=== PATIENT | female | born 1995 | race Caucasian/White ===

== ENCOUNTER → 2018-05-27 | Outpatient (CLI) | payer MEDICAID ==
--- NOTE | 2018-05-27 16:09 | Diagnostic Imaging Report ---
INDICATION: survey. TECHNIQUE: Multiple real-time grayscale images were obtained over the gravid uterus. COMPARISON: None. FINDINGS: There is a single live fetus in a variable presentation. heart rate was recorded at 167 beats per minute. Placenta is fundal. Amniotic fluid index is normal. Cervical length is 5.4 cm. survey demonstrates kidneys and bladder to be unremarkable. The brain is unremarkable. There is a four-chamber heart. There is a three-vessel cord with normal insertion. stomach and spine could not be well evaluated due to position. Biometrical measurements are as follows: Biparietal 4.86 cm, age 20 weeks 5 days. Head circumference 17.68 cm, age 20 weeks 2 days. Abdominal circumference 15.54 cm, age 20 weeks 5 days. Femur length 3.57 cm, age 21 weeks 3 days. Sonographic estimate age: 20 weeks 6 days. Sonographic estimated date of delivery: 10/08/18 Estimated Weight: 384 gm (+/- 56 gm). LMP percentile: 94%. heart rate: 167 beats per minute. number: 1 of 1. IMPRESSION: Single live IUP at 20 weeks 6 days gestational age. The estimated date of confinement sonographically is 10/08/2018. Dictated by: Dictated on workstation # [id number]
== END ==
LOC: RAD 13:57
PROVIDERS: ATTEND Obstetrics & Gynecology
DX: Z36.89 Encounter for other specified antenatal screening (principal); Z3A.20 20 weeks gestation of pregnancy
CPT/HCPCS: 76805

== ENCOUNTER → 2018-09-01 | Outpatient (CLI) | payer MEDICAID, OTHER ==
--- NOTE | 2018-09-01 15:49 | Diagnostic Imaging Report ---
INDICATION: Followup stomach and spine. TECHNIQUE: Multiple real-time grayscale images were obtained over the gravid uterus. COMPARISON: 05/27/2018. FINDINGS: There is a single live fetus in cephalic presentation. heart rate was recorded at 129 beats per minute. Placenta is anterior. Amniotic fluid volume is normal. Limited survey was performed demonstrating stomach and spine to be well visualized today. No significant abnormality is seen. Biometrical measurements are as follows: Biparietal 8.96 cm, age 36 weeks 2 days. Head circumference 31.71 cm, age 35 weeks 5 days. Abdominal circumference 31.91 cm, age 35 weeks 6 days. Femur length 6.98 cm, age 35 weeks 6 days. Sonographic estimate age: 36 weeks 0 days. Sonographic estimated date of delivery: 09/29/18. Estimated Weight: 2784 gm (+/- 407 gm). LMP percentile: 94%. heart rate: 129 beats per minute. number: 1 of 1. IMPRESSION: Single live IUP at approximately 36 weeks gestational age, showing normal interval growth. stomach and spine are unremarkable on today's study. Dictated by: Dictated on workstation # [id number]
== END ==
LOC: RAD 13:45
PROVIDERS: ATTEND Obstetrics & Gynecology
DX: O24.410 Gestational diabetes mellitus in pregnancy, diet controlled (principal); O36.63X1 Maternal care for excessive fetal growth, third trimester, fetus 1; Z3A.36 36 weeks gestation of pregnancy
CPT/HCPCS: 76816

== ENCOUNTER 2018-09-22 20:28 | Inpatient (IN) | payer MEDICAID ==
[~2018-09-22] VITALS: Ht 157.5 cm; Wt 106.8 kg
--- NOTE | 2018-09-22 20:23 | NUR ---
RUSTAM PAYAN presented to unit via ambulatory from home, accompanied by family , with c/o CONTRACTIONS. RUSTAM PAYAN weighed, gowned, voided, and to bed. EFHM and TOCO applied, VS taken. RUSTAM PAYAN oriented to bed controls, call light, TV, heat, and A/C controls.
--- NOTE | 2018-09-22 20:42 | NUR ---
Dr. Keene called per fabiola veras rn. cont to monitor x1hr and recheck cervix, call with results.
[2018-09-22 21:00] VITALS: BP 110/61
[2018-09-22] MEDS ORDERED: D5 LR IV SOLUTION 1,000 ML IV ONE ×2 (21:47→22:00)
[2018-09-22] MEDS ORDERED: PREN1TAB79 PO (21:51)
[2018-09-22] MEDS ORDERED: BUTORPHANOL INJ 2 MG/ML (STADOL) VIAL ONE (23:46)
--- NOTE | 2018-09-22 23:46 | NUR ---
Dr. Keene called per fabiola veras rn, new orders received. Will cont to monitor pt.
[2018-09-23] VITALS (50 sets, daily range): BP systolic 55–155; BP diastolic 44–110
[2018-09-23] MEDS ORDERED: D5 LR IV SOLUTION 1,000 ML IV SCH
[2018-09-23] MEDS ORDERED: BUTORPHANOL INJ 2 MG/ML (STADOL) VIAL IV ONE
[2018-09-23 00:57] LABS: BASOPHILS % (AUTO) 0 % (0-10); EOSINOPHILS # (AUTO) 0.2 10^3/uL (0.0-0.3); EOSINOPHILS % (AUTO) 2 % (0-10); HEMATOCRIT 32 % (35-52); HEMOGLOBIN 10.8 G/DL (11.5-16.0); LYMPHOCYTES # (AUTO) 2.7 X 10^3 (1.0-4.0); LYMPHOCYTES % (AUTO) 20 % (12-44); MEAN CORPUSCULAR HEMOGLOBIN 29 PG (25-34); MEAN CORPUSCULAR HGB CONC 33 G/DL (32-36); MEAN CORPUSCULAR VOLUME 85 FL (80-99); MEAN PLATELET VOLUME 10.3 FL (7.4-10.4); MONOCYTES # (AUTO) 1.1 X 10^3 (0.0-1.0); MONOCYTES % (AUTO) 8 % (0-12); NEUTROPHILS # (AUTO) 9.7 X 10^3 (1.8-7.8); NEUTROPHILS % (AUTO) 71 % (42-75); PLATELET COUNT 286 10^3/uL (130-400); RED BLOOD COUNT 3.78 10^6/uL (4.35-5.85); RED CELL DISTRIBUTION WIDTH 14.7 % (10.0-14.5); WHITE BLOOD COUNT 13.7 10^3/uL (4.3-11.0)
[2018-09-23] MEDS ORDERED: SUFENTA 0.6MCG/ML BUPIVA 0.125 100 ML ONE (06:08)
[2018-09-23] MEDS: LACTATED RINGERS 1,000 ML IV SCH ×2 (06:08→12:25)
[2018-09-23] MEDS ORDERED: BUPIVACAINE 0.25% 30 ML (SENSORCAINE) VIAL ONE (06:44)
[2018-09-23] MEDS ORDERED: fentaNYL INJECTION 100 MCG/2 ML AMP ONE (06:45)
[2018-09-23] MEDS ORDERED: FLU QUADRIvalent (5+ YOA) 2018-2019 (AFLURIA) 0.5 ML IM ONE (07:00)
[2018-09-23] MEDS ORDERED: LACTATED RINGERS 1,000 ML IV ONE (07:26)
[2018-09-23] MEDS ORDERED: NALOXONE 0.4 MG/ML 1 ML (NARCAN) VIAL IV PRN (07:30)
[2018-09-23] MEDS ORDERED: CATHETER FLUSH 10 ML SYR IV PRN (07:30)
[2018-09-23] MEDS ORDERED: EPIDURAL (SUFENTA 0.6MCG/ML BUPIVA 0.125%) 100 ML BAG EPI SCH (07:30)
[2018-09-23] MEDS ORDERED: ONDANSETRON 4 MG/2 ML (SDV) Z0FRAN IVP PRN (09:15)
[2018-09-23] MEDS: ACETAMINOPHEN 500 MG TAB (TYLENOL) PO PRN (13:07)
--- NOTE | 2018-09-23 13:22 | NUR ---
called to check on pt's status. update given. will recheck @ [id number], call MD with update
[2018-09-23] MEDS ORDERED: CATHETER FLUSH 10 ML SYR IV SCH ×2 (14:00→22:00)
--- NOTE | 2018-09-23 15:29 | NUR ---
was called. no answer on cell phone.
[2018-09-23] MEDS ORDERED: LIDOCAINE/EPI 2% 1:200,00 (XYLOCAINE) 10 ML VIAL ONE (15:31)
[2018-09-23] MEDS ORDERED: OXYTOCIN/NORMAL SALINE 500 ML IV ONE ×2 (15:31→16:21)
--- NOTE | 2018-09-23 15:38 | NUR ---
was called. no answer on cell phone. message left.
[2018-09-23] MEDS ORDERED: MINERAL OIL CONCENTRATE 99.9% 15 ML UDC ONE (15:43)
[2018-09-23] MEDS ORDERED: OXYTOCIN/NORMAL SALINE 500 ML IV SCH (16:17)
--- NOTE | 2018-09-23 16:23 | OB Labor & Delivery Record ---
Vag Delivery Note Vag Delivery Note Date of Delivery: 09/23/18 Preoperative Diagnosis: Juan Godinez is a (23 /Para 4 / 1,Gestational Age 36 6/7 weeks (edc 10/15/18) with labor, Gestational diabetes, diet controlled, Rh - Postoperative Diagnosis: Same Surgeon: CHANEL SIMON Oven Dauber: Brian Carey MS III Anesthesia: epidural Delivery Type: spontaneous vaginal delivery Findings: Viable female infant, apgars pending, weight 7#12 oz] Lacerations: 1st degree Intact placenta with 3 vessel cord. No nuchal cord, body cord or shoulder dystocia Estimated Blood Loss: 300 ml Complications: None Condition: Stable Description of Procedure: The patient is a 23 /Para 4 / 1,Gestational Age 36 6/7 weeks (edc ) Gestational diabetes, diet controlled, Rh -who presented in labor at 36 5/7 weeks. She was admitted and informed consent was obtained. Her labor course was remarkable for [] She progressed to complete dilatation and began to push. She was then set up for delivery. The 's head was delivered atraumatically in the OA position. The shoulders and remainder of the infant's body were then delivered without difficulty. Upon delivery, the head was held below the level of the perineum and the mouth and nares were bulb suctioned. The cord was doubly clamped and cut and the was handed off to the pediatric staff. An intact placenta with 3-vessel cord delivered via Mark and there was found to be minimal bleeding.~ Vigorous fundal massage was performed and the fundus was found to be firm. IV oxytocin was given. Examination of the vagina and perineum revealed a 1st degree laceration repaired in the usual fashion with 3-0 vicryl suture. Following the repair, sponge, instrument and needle counts were correct. Mom and baby were both in stable condition in the labor suite. Vitals - Labs Vital Signs - I&O Vital Signs Date Time Temp Pulse Resp B/P (MAP) Pulse Ox O2 Delivery O2 Flow Rate FiO2 09/23/18 15:00 100 18 55/53 (54) 94 Room Air 09/23/18 14:45 110 18 95/53 (67) 96 Room Air 09/23/18 14:30 108 18 95/54 (68) 97 Room Air 09/23/18 14:15 111 18 94/53 (67) 97 Room Air 09/23/18 14:00 111 18 85/45 (58) 96 Room Air 09/23/18 13:45 121 18 111/57 (75) 97 Room Air 09/23/18 13:30 113 18 107/59 (75) 98 Room Air 09/23/18 13:15 113 18 105/59 (74) 98 Room Air 09/23/18 13:00 113 18 83/49 (60) 98 Room Air 09/23/18 12:45 112 18 81/53 (62) 98 Room Air 09/23/18 12:30 98.6 116 18 82/44 (57) 98 Room Air 09/23/18 12:15 110 18 102/56 (71) 96 Room Air 09/23/18 12:00 110 18 98/54 (69) 98 Room Air 09/23/18 11:45 106 18 98/54 (69) 96 Room Air 09/23/18 11:30 104 18 104/60 (75) 96 Room Air 09/23/18 11:15 105 18 96 Room Air 09/23/18 11:00 105 18 106/63 (77) 96 Room Air 09/23/18 10:45 98.3 109 18 103/62 (76) 98 Room Air 09/23/18 10:30 105 18 103/57 (72) 99 Room Air 09/23/18 10:15 102 18 105/62 (76) 98 Room Air 09/23/18 10:00 109 18 110/68 (82) 99 Room Air 09/23/18 09:45 108 18 99/61 (74) 97 Room Air 09/23/18 09:30 103 18 98/60 (73) 97 Room Air 09/23/18 09:15 106 18 97/60 (72) 99 Room Air 09/23/18 09:00 102 18 95/53 (67) 98 Room Air 09/23/18 08:45 108 18 95/58 (70) 97 Room Air 09/23/18 08:30 108 18 87/50 (62) 97 Room Air 09/23/18 08:15 103 18 106/63 (77) 99 Room Air 09/23/18 08:00 115 18 98 Room Air 09/23/18 07:45 118 18 155/110 (125) 99 Room Air 09/23/18 07:25 98.7 118 18 114/62 (79) 98 Room Air 09/23/18 07:22 122 18 117/84 (95) 98 Room Air 09/23/18 07:19 108 18 117/73 (88) 97 Room Air 09/23/18 07:16 111 18 118/76 (90) 98 Room Air 09/23/18 07:13 112 18 126/78 (94) 98 Room Air 09/23/18 07:10 112 18 134/78 (96) 98 Room Air 09/23/18 07:07 123 18 127/77 (94) 98 Room Air 09/23/18 07:00 98.1 09/23/18 03:00 98.0 09/22/18 21:00 98.6 115 18 110/61 (77) Room Air Labs Laboratory Tests 09/23/18 00:35: White Blood Count 13.7H, Red Blood Count 3.78L, Hemoglobin 10.8L, Hematocrit 32L , Mean Corpuscular Volume 85, Mean Corpuscular Hemoglobin 29, Mean Corpuscular Hemoglobin Concent 33, Red Cell Distribution Width 14.7H, Platelet Count 286, Mean Platelet Volume 10.3, Neutrophils (%) (Auto) 71, Lymphocytes (%) (Auto) 20 , Monocytes (%) (Auto) 8, Eosinophils (%) (Auto) 2, Basophils (%) (Auto) 0, Neutrophils # (Auto) 9.7H, Lymphocytes # (Auto) 2.7, Monocytes # (Auto) 1.1H, Eosinophils # (Auto) 0.2, Basophils # (Auto) 0.0 09/23/18 06:06: Glucometer 109 CHANEL SIMON DO Sep 23, 2018 16:23
[2018-09-23] MEDS ORDERED: TETANUS,DIPTH,PERTUSS P/F (BOOSTRIX) 0.5 ML VIAL IM ONE (16:30)
[2018-09-23] MEDS ORDERED: ACETAMINOPHEN 500 MG TAB (TYLENOL) PO PRN (16:30)
[2018-09-23] MEDS ORDERED: MEASLES,MUMPS,RUBELLA 1 EA INJ SQ ONE (16:30)
[2018-09-23] MEDS ORDERED: BENZOCAINE/MENTHOL (DERMOPLAST) 56 ML CAN TP PRN (16:30)
[2018-09-23] MEDS ORDERED: WITCH HAZEL(TUCKS) 40 EA JAR TOP PRN (16:30)
--- NOTE | 2018-09-23 17:45 | NUR ---
FFu/1. lt renny noted. no clots expressed. rodolfo-care offered. v-pad and panties in place. pt transported to nursery via w/c to see . Addendum: 09/23/18 at 1954 by SEBASTIÁN DONALDSON RN correction to time of note. mother into nursery @ 1842
--- NOTE | 2018-09-23 19:10 | NUR ---
report given to Hamzah RN
[2018-09-23] MEDS: IBUPROFEN 600 MG (MOTRIN) TAB PO SCH (19:18)
[2018-09-23] MEDS: DOCUSATE SODIUM 100 MG (COLACE) CAP PO SCH (21:33)
[2018-09-24] MEDS: IBUPROFEN 600 MG (MOTRIN) TAB PO SCH ×4 (00:47→21:58)
[2018-09-24 04:17] LABS: BASOPHILS % (AUTO) 0 % (0-10); EOSINOPHILS # (AUTO) 0.2 10^3/uL (0.0-0.3); EOSINOPHILS % (AUTO) 1 % (0-10); HEMATOCRIT 31 % (35-52); HEMOGLOBIN 10.2 G/DL (11.5-16.0); LYMPHOCYTES # (AUTO) 3.2 X 10^3 (1.0-4.0); LYMPHOCYTES % (AUTO) 22 % (12-44); MEAN CORPUSCULAR HEMOGLOBIN 28 PG (25-34); MEAN CORPUSCULAR HGB CONC 33 G/DL (32-36); MEAN CORPUSCULAR VOLUME 87 FL (80-99); MEAN PLATELET VOLUME 10.5 FL (7.4-10.4); MONOCYTES # (AUTO) 0.8 X 10^3 (0.0-1.0); MONOCYTES % (AUTO) 6 % (0-12); NEUTROPHILS # (AUTO) 10.4 X 10^3 (1.8-7.8); NEUTROPHILS % (AUTO) 71 % (42-75); PLATELET COUNT 233 10^3/uL (130-400); RED BLOOD COUNT 3.59 10^6/uL (4.35-5.85); RED CELL DISTRIBUTION WIDTH 14.5 % (10.0-14.5); WHITE BLOOD COUNT 14.7 10^3/uL (4.3-11.0)
[2018-09-24 04:57] VITALS: BP 86/58
--- NOTE | 2018-09-24 06:57 | Anesthesia-Regional Post-Op ---
Regional Patient Condition Mental Status: Alert, Oriented x3 Circulation: Same as Pre-Op Headache: Absent Sensation: Full Recovery Motor Block: Absent Post Op Complications Complications None Follow Up Care/Instructions Patient Instructions None needed. Anesthesia/Patient Condition Patient is doing well, no complaints, stable vital signs, no apparent adverse anesthesia problems. No complications reported per nursing. MINOO BLAS CRNA Sep 24, 2018 06:57
--- NOTE | 2018-09-24 09:30 | NUR ---
AM assessment delayed due to mom in nursery visiting with baby.
[2018-09-24 10:37] VITALS: BP 98/70
[2018-09-24] MEDS: DOCUSATE SODIUM 100 MG (COLACE) CAP PO SCH ×2 (10:43→21:59)
[2018-09-24] MEDS: PRENATAL VITAMIN 1 EA TAB PO SCH (10:43)
--- NOTE | 2018-09-24 11:01 | NUR ---
Rhogam given in rt hip for RH + . Instructions given to obtain injection within 72 hrs if or miscarriage. ID card given. Pt verbalized understanding.
[2018-09-24 12:40] VITALS: BP 100/65
--- NOTE | 2018-09-24 13:00 | Postpartum Progress Note ---
Note Note Day # 1 s/p , gestational diabetes, 35 6/7 qweeks Subjective: Patient is without complaints. Ambulating, voiding. Tolerating a regular diet without nausea or vomiting. Normal lochia. Pain is well controlled with oral pain medications. Objective: Laboratory Tests Test 09/24/18 04:05 09/24/18 06:42 Range/Units White Blood Count 14.7 H 4.3-11.0 10^3/uL Red Blood Count 3.59 L 4.35-5.85 10^6/uL Hemoglobin 10.2 L 11.5-16.0 G/DL Hematocrit 31 L 35-52 % Mean Corpuscular Volume 87 80-99 FL Mean Corpuscular Hemoglobin 28 25-34 PG Mean Corpuscular Hemoglobin Concent 33 32-36 G/DL Red Cell Distribution Width 14.5 10.0-14.5 % Platelet Count 233 130-400 10^3/uL Mean Platelet Volume 10.5 H 7.4-10.4 FL Neutrophils (%) (Auto) 71 42-75 % Lymphocytes (%) (Auto) 22 12-44 % Monocytes (%) (Auto) 6 0-12 % Eosinophils (%) (Auto) 1 0-10 % Basophils (%) (Auto) 0 0-10 % Neutrophils # (Auto) 10.4 H 1.8-7.8 X 10^3 Lymphocytes # (Auto) 3.2 1.0-4.0 X 10^3 Monocytes # (Auto) 0.8 0.0-1.0 X 10^3 Eosinophils # (Auto) 0.2 0.0-0.3 10^3/uL Basophils # (Auto) 0.0 0.0-0.1 10^3/uL Glucometer 112 H 70-110 MG/DL 09/24/18 09/24/18 09/24/18 04:57 10:37 12:40 Temp 99.3 97.6 97.7 Pulse 75 86 75 Resp 18 20 20 B/P (MAP) 86/58 (67) 98/70 (79) 100/65 (77) Pulse Ox 97 O2 Delivery Room Air Room Air Room Air Physical Exam: General - Alert and oriented, no apparent distress Abdomen - Soft, appropriately tender to palpation, non-distended, fundus firm at umbilicus Extremities - no edema, negative Magdalena's bilaterally Assessment: 1. post- day # 1, status post vaginal delivery. Recovering well, hemodynamically stable Plan: Routine care. Encourage breast feeding. Encourage ambulation. Ferrous sulfate supplementation. Plan for discharge tomorrow Vitals - Labs Vital Signs - I&O Vital Signs Date Time Temp Pulse Resp B/P (MAP) Pulse Ox O2 Delivery O2 Flow Rate FiO2 09/24/18 12:40 97.7 75 20 100/65 (77) 97 Room Air 09/24/18 10:37 97.6 86 20 98/70 (79) Room Air 09/24/18 04:57 99.3 75 18 86/58 (67) Room Air 09/23/18 23:44 98.4 84 18 111/65 (80) Room Air 09/23/18 21:33 97.7 106 18 101/65 (77) Room Air 09/23/18 18:25 98.1 111 18 107/68 (81) Room Air 09/23/18 18:10 98 18 106/62 (77) Room Air 09/23/18 17:55 111 18 112/75 (87) Room Air 09/23/18 17:40 91 18 110/60 (77) Room Air 09/23/18 17:25 106 18 109/60 (76) Room Air 09/23/18 17:10 98 18 111/66 (81) Room Air 09/23/18 16:55 96 18 109/64 (79) Room Air 09/23/18 16:45 99 18 112/69 (83) Room Air 09/23/18 16:30 100 18 110/59 (76) Room Air 09/23/18 15:55 99.4 107 18 110/59 (76) Room Air 09/23/18 15:45 109 18 129/61 (83) Room Air 09/23/18 15:30 107 18 102/58 (73) 96 Room Air 09/23/18 15:15 107 18 102/58 (73) 96 Room Air 09/23/18 15:00 100 18 55/53 (54) 94 Room Air 09/23/18 14:45 110 18 95/53 (67) 96 Room Air 09/23/18 14:30 108 18 95/54 (68) 97 Room Air 09/23/18 14:15 111 18 94/53 (67) 97 Room Air 09/23/18 14:00 111 18 85/45 (58) 96 Room Air 09/23/18 13:45 121 18 111/57 (75) 97 Room Air 09/23/18 13:30 113 18 107/59 (75) 98 Room Air 09/23/18 13:15 113 18 105/59 (74) 98 Room Air 09/23/18 13:00 113 18 83/49 (60) 98 Room Air Labs Laboratory Tests 09/24/18 04:05: White Blood Count 14.7H, Red Blood Count 3.59L, Hemoglobin 10.2L, Hematocrit 31L , Mean Corpuscular Volume 87, Mean Corpuscular Hemoglobin 28, Mean Corpuscular Hemoglobin Concent 33, Red Cell Distribution Width 14.5, Platelet Count 233, Mean Platelet Volume 10.5H, Neutrophils (%) (Auto) 71, Lymphocytes (%) (Auto) 22 , Monocytes (%) (Auto) 6, Eosinophils (%) (Auto) 1, Basophils (%) (Auto) 0, Neutrophils # (Auto) 10.4H, Lymphocytes # (Auto) 3.2, Monocytes # (Auto) 0.8, Eosinophils # (Auto) 0.2, Basophils # (Auto) 0.0 09/24/18 06:42: Glucometer 112H CHANEL SIMON DO Sep 24, 2018 13:00
[2018-09-24] MEDS ORDERED: IBUP-844 PO (13:01)
[2018-09-24] MEDS ORDERED: ACET-77 PO (13:01)
--- NOTE | 2018-09-24 13:03 | Discharge Inst-Women's Service ---
Discharge Inst-Women's Serv Depart Medication/Instructions New, Converted or Re-Newed RX: RX on Chart Final Diagnosis gestational diabetes rupture of membranes Rh - Consults/Follow Up Additional Follow Up: Yes (6 week for 2 hour glucola and follow up with dr. simon) Activity Activity: Activity as Tolerated Driving Instructions: You May Drive NO SMOKING: NO SMOKING Nothing Inside Vagina: No Douching, No [place], No Tampons Diet Discharge Diet: No Restrictions Symptoms to Report to : Bleeding Excessive, Pain Increased, Fever Over 101 Degrees F, Vaginal Bleeding Increase, Cramps in Feet or Legs, Vaginal Discharge Foul For Any Problems or Questions: Contact Your Physician CHANEL SIMON DO Sep 24, 2018 13:03
--- NOTE | 2018-09-24 15:21 | NUR ---
Ibuprofen called to [facility] in [place].
--- NOTE | 2018-09-24 16:15 | NUR ---
Pt given home instructions- verbal and written. Discharged signed by mom. Planned discharge for am.
[2018-09-24 18:00] VITALS: BP 108/58
--- NOTE | 2018-09-24 19:10 | NUR ---
Mom tearful this afternoon and evening. Baby in NICU. She holds and cuddles baby. S.O. and daughter at bedside.
--- NOTE | 2018-09-24 21:00 | NUR ---
went to complete assessment. pt in nsy. told patient to notify rn when back in room.
[2018-09-25] MEDS: ACETAMINOPHEN 500 MG TAB (TYLENOL) PO PRN
[2018-09-25 00:05] VITALS: BP 109/75
[2018-09-25] MEDS: IBUPROFEN 600 MG (MOTRIN) TAB PO SCH ×2 (04:20→09:08)
[2018-09-25 06:09] VITALS: BP 112/78
[2018-09-25] MEDS: DOCUSATE SODIUM 100 MG (COLACE) CAP PO SCH (09:08)
[2018-09-25] MEDS: PRENATAL VITAMIN 1 EA TAB PO SCH (09:08)
--- NOTE | 2018-09-25 09:30 | NUR ---
RUSTAM PAYAN demonstrates understanding of discharge instructions and accurately returns instructions upon questioning. Copy of Post-Discharge Instructions and Medication Discharge Instructions given to patient. RUSTAM PAYAN is able to manage continuing needs after discharge. Patients belongings returned to patient. Skin dry and intact; no breakdown noted. Patient discharged from [facility] [place] on 09-25-18 at 0930. RUSTAM PAYAN remains in room 309 to [facility] r[facility]t [facility] in nursery.
== END 2018-09-25 09:30 | disposition home or self-care (01) | DRG 807 ==
LOC: LDRP 20:28 → WSo 20:28 → LDRP 09-23 06:01 → WS 09-24 11:50 → LDRP 09-24 11:50
PROVIDERS: ADMIT Obstetrics & Gynecology; ATTEND Obstetrics & Gynecology
PROC: 10E0XZZ Delivery of Products of Conception, External Approach (ICD-10-PCS; principal; 2018-09-23)
PROC: 0HQ9XZZ Repair Perineum Skin, External Approach (ICD-10-PCS; 2018-09-23)
DX: O60.14X0 Preterm labor third trimester with preterm delivery third trimester, not applicable or unspecified (principal); O24.420 Gestational diabetes mellitus in childbirth, diet controlled; O70.0 First degree perineal laceration during delivery; O26.893 Other specified pregnancy related conditions, third trimester; Z67.11 Type A blood, Rh negative; Z3A.36 36 weeks gestation of pregnancy; Z37.0 Single live birth; Z87.891 Personal history of nicotine dependence
CPT/HCPCS: 36415; 82962; 83033; 85025; 86850; 86900; 86901; 99212

== ENCOUNTER → 2018-09-22 | Outpatient (CLI) | payer MEDICAID ==
[~2018-09-22] MED LIST: ACET-77 PO; IBUP-844 PO; PREN1TAB79 PO
--- NOTE | 2018-09-22 14:21 | Diagnostic Imaging Report ---
INDICATION: Large for gestational age. TECHNIQUE: Multiple real-time grayscale images were obtained over the gravid uterus. COMPARISON: 09/01/2018. FINDINGS: There is a single live fetus in a cephalic presentation. heart rate was recorded at 135 beats per minute. Amniotic fluid index is 19.5 cm. Biophysical profile was performed with score of 4/8. Deduction was given for lack of movements and posture and tone. Biometrical measurements are as follows: Biparietal 9.49 cm, age 38 weeks 5 days. Head circumference 34.10 cm, age 39 weeks 2 days. Abdominal circumference 34.28 cm, age 38 weeks 2 days. Femur length 7.18 cm, age 36 weeks 6 days. Sonographic estimate age: 38 weeks 2 days. Sonographic estimated date of delivery: 10/04/2018. Estimated Weight: 3381 gm (+/- 494 gm). LMP percentile: 50%. heart rate: 135 beats per minute. number: 1 of 1. IMPRESSION: Single live IUP approximately 38 weeks gestational age. Biophysical profile score is 4/8, as described above. Results were called to Dr. Romeo by the technologist at the time of the exam. Dictated by: Dictated on workstation # [id number]
== END ==
LOC: RAD 12:31
PROVIDERS: ATTEND Obstetrics & Gynecology
DX: O36.63X0 Maternal care for excessive fetal growth, third trimester, not applicable or unspecified (principal); O24.410 Gestational diabetes mellitus in pregnancy, diet controlled; Z3A.38 38 weeks gestation of pregnancy
CPT/HCPCS: 76805; 76819

== ENCOUNTER → 2020-02-13 | Outpatient (CLI) | payer MEDICAID ==
[~2020-02-13] MED LIST changes: -ACET-77 PO; +ACET-78 PO
== END ==
LOC: LAB FS 17:43
PROVIDERS: ATTEND Family Medicine
DX: Z34.90 Encounter for supervision of normal pregnancy, unspecified, unspecified trimester (principal); Z3A.00 Weeks of gestation of pregnancy not specified
CPT/HCPCS: 36415; 87491; 87591

== ENCOUNTER → 2020-03-12 | Outpatient (CLI) | payer MEDICAID | LOC: LAB FS 16:25 | PROVIDERS: ATTEND Family Medicine | DX: Z34.82 Encounter for supervision of other normal pregnancy, second trimester (principal) | CPT/HCPCS: 36415; 82105; 84702; 86336 ==

== ENCOUNTER → 2020-06-04 | Outpatient (CLI) | payer MEDICAID ==
[2020-06-04 15:57] LABS: HEMATOCRIT 34 % (35-52); HEMOGLOBIN 11.2 G/DL (11.5-16.0); MEAN CORPUSCULAR HEMOGLOBIN 28 PG (25-34); MEAN CORPUSCULAR HGB CONC 33 G/DL (32-36); MEAN CORPUSCULAR VOLUME 84 FL (80-99); MEAN PLATELET VOLUME 9.7 FL (7.4-10.4); PLATELET COUNT 323 10^3/uL (130-400); WHITE BLOOD COUNT 12.7 10^3/uL (4.3-11.0)
[2020-06-04 15:58] LABS: BASOPHILS % (AUTO) 0 % (0-10); EOSINOPHILS % (AUTO) 3 % (0-10); LYMPHOCYTES % (AUTO) 19 % (12-44); MONOCYTES % (AUTO) 3 % (0-12); NEUTROPHILS % (AUTO) 75 % (42-75)
[2020-06-04 15:59] LABS: EOSINOPHILS # (AUTO) 0.3 10^3/uL (0.0-0.3); LYMPHOCYTES # (AUTO) 2.4 X 10^3 (1.0-4.0); MONOCYTES # (AUTO) 0.4 X 10^3 (0.0-1.0); NEUTROPHILS # (AUTO) 9.5 X 10^3 (1.8-7.8)
== END ==
LOC: LAB FS 15:12
PROVIDERS: ATTEND Family Medicine
DX: Z34.83 Encounter for supervision of other normal pregnancy, third trimester (principal)
CPT/HCPCS: 36415; 82950; 85025; 86592; 86850

== ENCOUNTER → 2020-06-08 | Outpatient (CLI) | payer MEDICAID | LOC: LAB FS 07:12 | PROVIDERS: ATTEND Family Medicine | DX: R73.09 Other abnormal glucose (principal) | CPT/HCPCS: 36415; 82951; 82952; 82962 ==

== ENCOUNTER 2020-08-08 01:50 | Inpatient (IN) | payer MEDICAID ==
[2020-08-08] VITALS (11 sets, daily range): BP systolic 92–145; BP diastolic 50–86
[~2020-08-08] VITALS: Ht 157.5 cm; Wt 113.0 kg
--- NOTE | 2020-08-08 01:50 | NUR ---
RUSTAM PAYAN presented to unit via WC from ED, accompanied by staff and s.o, with c/o CONTRACTIONS,FLUID LEAKAGE. RUSTAM PAYAN weighed, gowned, voided, and to bed. EFHM and TOCO applied, VS taken. RUSTAM PAYAN oriented to bed controls, call light, TV, heat, and A/C controls.
[2020-08-08] MEDS ORDERED: NS IV 1000 ML 1,000 ML ONE (02:04)
--- NOTE | 2020-08-08 02:04 | NUR ---
Dr. Romeo called regarding pt's status, 6-7cm, intact, crying/sobbing in pain, requesting epidural, no pn records available, dr. kelly out due to illness. orders received for epidural placement and admit.
[2020-08-08] MEDS ORDERED: D5 LR IV SOLUTION 1,000 ML IV SCH (02:10)
[2020-08-08] MEDS ORDERED: MINERAL OIL CONCENTRATE 99.9% 15 ML UDC TOP PRN (02:15)
[2020-08-08] MEDS ORDERED: OXYTOCIN PRE-MIX DRIP 1,000 ML IV ONE (02:23)
[2020-08-08] MEDS ORDERED: LIDOCAINE/EPI 2% 1:200,00 (XYLOCAINE) 10 ML VIAL ONE (02:23)
--- NOTE | 2020-08-08 02:25 | History & Physical-OB ---
OB - Chief Complaint & HPI Date/Time Date of Admission: Date of Admission: Aug 08, 2020 at 02:10 Date seen by a Provider: Aug 08, 2020 Time Seen by a Provider: 02:30 Chief Complaint/History OB-Reason for Admission/Chief: Onset of Labor (PAtient reports contractions began last evening) Hx : 3 Hx Para: 2 Expected Date of Delivery: Aug 25, 2020 Gestational Age in Weeks: 37 Gestational Age in Days: 4 Other reason for admission: Patient of Dr. Barr. she is out due to illness, new diagnosis and unknown to staff. I was called with report of labor at 0210 that she was 6-7 cm, high with intact membranes, but soni regularly, and then notified at 0237 as I was dressing that labs were done and anesthesia on the way for epidural but she was 8 cm and feeling pushy. I arrived at the hospital, but delayed with rain and train and covid protocol (PPE). As I walked into the room the baby delivered en call by the nurses. Patient reports bleeding began last night around 11 and then contractions, but they weren't regular so she wasn't sure she was in labor. complicated by GDM A2 treated with metformin. she states she took metformin last night prior to dinner. Blood sugar on arrival was 103 and was 88 last night, but "I ate a pop tart while I was trying to figure out if I was in labor". No covid symptoms. See delivery note Admission Nurse Assessment Rev: Yes History of Labs GBS - A-/ antibody negative syphilis neg PN labs unavailable I checked [facility] and [employer] and did not find previous labs except CBC, progenity, quad screen results (all wnl), syphilis and glucose testing. GBS - in [place] Previous Rub I HIV - HBsAg- Hep C neg (all drawn 01/2018) Allergies and Home Medications Allergies Coded Allergies: No Known Drug Allergies (Unverified , 08/08/20) Patient Home Medication List Home Medication List Reviewed: Yes OB - History Hx of Present Ultrasounds: Normal mid trimester US Obstetrical Complications: Gestational Diabetes (controlled with metformin. Normal testing) Information Induced Hypertension: No Maternal Gestational Diabetes: Yes Hemorrhage: No Obstetrical History Hx : 3 Hx Para: 2 Hx # Term Pregnancies: 1 Hx # Pregnancies: 1 Number of Living Children: 2 Hx Termination: No Hx Total # of Abortions ([place]: 2 Hx Multiple Gestation: No Hx Ectopic : No Hx Stillbirth: No Hx Complication: No Hx Induced Hypertens: No Hx Maternal Gestational Diabet: Yes Hx Hemorrhage: No Delivery History Hx Dystocia: No Hx Forceps Assisted Delivery: No Hx Vacuum Extraction Assisted: No Hx Placenta Abnormality: No Hx Distress: No Hx Large For Gestational Age I: Yes Hx Small for Gestational Age I: No Hx Section: No Hx Vaginal Delivery Post C-Sec: No Hx Blood Disorders: No Adverse Rxn to Tranfusion: No Patient Past Medical History NC Social History/Family History HIV/AIDS: No Recent Infectious Disease Expo: No Sexually Transmitted Disease: No Alcohol Use: Denies Use Recreational Drug Use: No Smoking Cessation: Former smoker (quit 2015) Immunizations Hepatitis A: No Hepatitis B: No Tetanus Booster (TDap): Less than 5yrs Rubella: unknown RPR/VDRL: Negative GBS Status: Negative HBsAG: Unknown OB - Admission Exam Physical Exam Vitals: See RN chart Heart: Rhythm Normal Lungs: Clear Abdomen: Gravid Extremities: Edema (1+) Reflexes: Normal Cervical Dilatation: other (see note) Effacement: Other Station: Other Membranes: Intact Amniotic Fluid: Other (large amount of blood clots with delivery, but fluid clear) Heart Rate: 140's Accelerations: Accelerations Present Decelerations: No Decelerations Short Term Variability: Present Halfway Variability: Average (6-25) Contractions on Admission: < 5 Minutes Apart Intensity: Moderate Labs Laboratory Tests Test 08/08/20 02:15 08/08/20 03:20 Range/Units White Blood Count 12.8 H 4.3-11.0 10^3/uL Red Blood Count 4.32 3.80-5.11 10^6/uL Hemoglobin 11.8 11.5-16.0 g/dL Hematocrit 36 35-52 % Mean Corpuscular Volume 84 80-99 fL Mean Corpuscular Hemoglobin 27 25-34 pg Mean Corpuscular Hemoglobin Concent 33 32-36 g/dL Red Cell Distribution Width 14.2 10.0-14.5 % Platelet Count 286 130-400 10^3/uL Mean Platelet Volume 10.4 9.0-12.2 fL Immature Granulocyte % (Auto) 1 % Neutrophils (%) (Auto) 69 42-75 % Lymphocytes (%) (Auto) 22 12-44 % Monocytes (%) (Auto) 7 0-12 % Eosinophils (%) (Auto) 2 0-10 % Basophils (%) (Auto) 0 0-10 % Neutrophils # (Auto) 8.8 H 1.8-7.8 10^3/uL Lymphocytes # (Auto) 2.8 1.0-4.0 10^3/uL Monocytes # (Auto) 0.9 0.0-1.0 10^3/uL Eosinophils # (Auto) 0.2 0.0-0.3 10^3/uL Basophils # (Auto) 0.0 0.0-0.1 10^3/uL Immature Granulocyte # (Auto) 0.1 0.0-0.1 10^3/uL Glucose Level 104 70-105 MG/DL Laboratory Tests Test 08/08/20 02:15 Range/Units OB - Assessment/Plan/Diagnosis Assessment Assessment: active labor Admission Dx 1. at 37 47 weeks in active labor 2. GDM A2 Plan - precipitous delivery en call PN labs seem to be unavailable Will redraw Covid test to be done due to protocol Admission Status: Inpatient Order (span 2 midnights) (labor) Reason for Inpatient Admission: labor Plan Plan: Expectant Management CHANEL SIMON DO Aug 08, 2020 02:25
[2020-08-08 02:29] LABS: BASOPHILS % (AUTO) 0 % (0-10); EOSINOPHILS # (AUTO) 0.2 10^3/uL (0.0-0.3); EOSINOPHILS % (AUTO) 2 % (0-10); HEMATOCRIT 36 % (35-52); HEMOGLOBIN 11.8 g/dL (11.5-16.0); LYMPHOCYTES # (AUTO) 2.8 10^3/uL (1.0-4.0); LYMPHOCYTES % (AUTO) 22 % (12-44); MEAN CORPUSCULAR HEMOGLOBIN 27 pg (25-34); MEAN CORPUSCULAR HGB CONC 33 g/dL (32-36); MEAN CORPUSCULAR VOLUME 84 fL (80-99); MEAN PLATELET VOLUME 10.4 fL (9.0-12.2); MONOCYTES # (AUTO) 0.9 10^3/uL (0.0-1.0); MONOCYTES % (AUTO) 7 % (0-12); NEUTROPHILS # (AUTO) 8.8 10^3/uL (1.8-7.8); NEUTROPHILS % (AUTO) 69 % (42-75); PLATELET COUNT 286 10^3/uL (130-400); WHITE BLOOD COUNT 12.8 10^3/uL (4.3-11.0)
[2020-08-08] MEDS ORDERED: LACTATED RINGERS 1,000 ML IV SCH (02:30)
[2020-08-08] MEDS ORDERED: BUTORPHANOL INJ 2 MG/ML (STADOL) VIAL IV ONE (02:30)
--- NOTE | 2020-08-08 02:33 | NUR ---
Tete Child [employer] called for epidural placement.
[2020-08-08] MEDS ORDERED: fentaNYL 2 mcg/ml BUPIVA 0.125 0 ML ONE (02:36)
--- NOTE | 2020-08-08 02:36 | NUR ---
Dr. robert route for delivery. Addendum: 08/08/20 at 0459 by EAN SEPULVEDA RN this rn notified of pt being 8cm, water in tact, thrashing uncontrollably, - see above
--- NOTE | 2020-08-08 03:00 | NUR ---
See labor flowsheet for further details regarding delivery, physician arrival and care. 0300 - pitocin infusion at 999ml/hr initiated 0330 - pitocin bag one complete 0330 - pitocin infusion at 999ml/hr initiated scan times not recorded at accurate times
[2020-08-08] MEDS ORDERED: TETANUS,DIPTH,PERTUSS P/F (BOOSTRIX) 0.5 ML VIAL IM ONE (03:30)
[2020-08-08] MEDS ORDERED: MEASLES,MUMPS,RUBELLA 1 EA INJ SQ ONE (03:30)
[2020-08-08] MEDS ORDERED: WITCH HAZEL(TUCKS) 40 EA JAR TOP PRN (03:30)
[2020-08-08] MEDS ORDERED: BENZOCAINE/MENTHOL (DERMOPLAST) 60 ML CAN TP PRN (03:30)
[2020-08-08] MEDS ORDERED: KETOROLAC 30 MG/ML VIAL IVP ONE (03:30)
--- NOTE | 2020-08-08 03:57 | OB Labor & Delivery Record ---
Vag Delivery Note Vag Delivery Note Date of Delivery: 08/08/20 Preoperative Diagnosis: Juan Godinez is a 25 /Para 5 / 2,Gestational Age 37 4/7 weeks, active labor, GDM A2 Postoperative Diagnosis: Same Surgeon: CHANEL SIMON Anesthesia: none Delivery Type: precipitous delivery en call, suspect abruption as well Findings: Viable male , apgars 7/8, weight pending Lacerations: 1st degree Intact placenta with 3 vessel cord. Large clots noticed. With delivery of baby, placenta delivered as well. suspect abruption. No nuchal cord, body cord or shoulder dystocia Estimated Blood Loss: 200 ml (but could not assess completely as she delivered in the bed and some had been removed already. Complications: None Condition: Stable Description of Procedure: The patient is a 25 /Para 5 / 2,Gestational Age 37 4/7 weeks, active labor, GDM A2. She was admitted and informed consent was obtained. Her labor cou rse was remarkable for precipitous delivery. she is a patient of Dr. Barr. Dr. Barr was notified of delivery by RN, and was informed that she is out due to illness. Then I was informed of arrival at 0210. She was noted to be soni painfully every 2-3 minutes and requesting an epidural. At 0237 I was notified that she was progressing quickly and PANTRY COOK was on the way. At 0255 I was notified that she was feeling pushy but still intact. I was en route to the hospital but delayed by train, lisette and Covid protocol. At 0256 I arrived at the hospital. Per RN, she progressed to complete dilatation and began to push involuntarily. I arrived on the floor as she was delivering ([id number]). Rn Delivered en call and ROM at delivery. The 's head was delivered atraumatically in the OA position. The shoulders and remainder of the infant's body were then delivered without difficulty. Upon delivery, the head was held below the level of the perineum and the mouth and nares were bulb suctioned. The cord was doubly clamped and cut and the was handed off to the pediatric staff. An intact placenta with 3-vessel cord delivered via Mark and there was found to be minimal bleeding.~ Vigorous fundal massage was performed and the fundus was found to be firm. IV oxytocin was given. Examination of the vagina and perineum revealed a 1st laceration . she adamantly declined local anesthetic or suture. The wound was hemostatic, so I did not place sutures. Following the delivery, sponge, instrument and needle counts were correct. Mom and baby were both in stable condition in the labor suite. Vitals - Labs Labs Laboratory Tests 08/08/20 02:15: White Blood Count 12.8H, Red Blood Count 4.32, Hemoglobin 11.8, Hematocrit 36, Mean Corpuscular Volume 84, Mean Corpuscular Hemoglobin 27, Mean Corpuscular Hemoglobin Concent 33, Red Cell Distribution Width 14.2, Platelet Count 286, Mean Platelet Volume 10.4, Immature Granulocyte % (Auto) 1, Neutrophils (%) (Auto) 69, Lymphocytes (%) (Auto) 22, Monocytes (%) (Auto) 7, Eosinophils (%) (Auto) 2, Basophils (%) (Auto) 0, Neutrophils # (Auto) 8.8H, Lymphocytes # (Auto) 2.8, Monocytes # (Auto) 0.9, Eosinophils # (Auto) 0.2, Basophils # (Auto) 0.0, Immature Granulocyte # (Auto) 0.1, Glucose Level 104 08/08/20 03:20: CHANEL SIMON DO Aug 08, 2020 03:57
[2020-08-08] MEDS ORDERED: FERR325T18 PO (04:05)
[2020-08-08] MEDS ORDERED: ACET-93 PO (04:05)
[2020-08-08] MEDS ORDERED: IBUP-844 PO (04:05)
--- NOTE | 2020-08-08 04:06 | Discharge Inst-Women's Service ---
Discharge Inst-Women's Serv Depart Medication/Instructions New, Converted or Re-Newed RX: Transmitted to Pharmacy Final Diagnosis 37 week gestation precipitous delivery placental abruption GDM A2 acute blood loss anemia Problems Reviewed?: Yes Consults/Follow Up Additional Follow Up: Yes ([address] Barr) Activity Activity: Activity as Tolerated Driving Instructions: You May Drive NO SMOKING: NO SMOKING Nothing Inside Vagina: No Douching, No [place], No Tampons Diet Discharge Diet: No Restrictions Symptoms to Report to : Swelling Increased, Bleeding Excessive, Pain Increased, Fever Over 101 Degrees F, Vaginal Bleeding Increase, Cramps in Feet or Legs, Vaginal Discharge Foul For Any Problems or Questions: Contact Your Physician Skin/Wound Care Bathing Instructions: CHANEL Escalona DO Aug 08, 2020 04:06
[2020-08-08] MEDS: OXYTOCIN PRE-MIX DRIP 500 ML IV SCH (04:20)
--- NOTE | 2020-08-08 04:30 | NUR ---
Pt up to bathroom, pericare pads changed, unable to void at this time, pt to wc and transferred to pp unit via wc per this rn. oriented to call system and surroundings, understanding voiced, denies needs, will cont to monitor.
[2020-08-08] MEDS ORDERED: CATHETER FLUSH 10 ML SYR IV SCH ×2 (06:00)
--- NOTE | 2020-08-08 08:35 | NUR ---
parents into nursery to see . no voiced c/o's @ time.
[2020-08-08] MEDS: DOCUSATE SODIUM 100 MG (COLACE) CAP PO SCH ×2 (09:15→22:25)
--- NOTE | 2020-08-08 09:15 | NUR ---
initial shift assessment completed, see interventions for further.
[2020-08-08] MEDS: ACETAMINOPHEN 500 MG TAB (TYLENOL) PO SCH (09:16)
[2020-08-08] MEDS: IBUPROFEN 600 MG (MOTRIN) TAB PO SCH ×3 (09:16→22:25)
[2020-08-08] MEDS: PRENATAL VITAMIN 1 EA TAB PO SCH (09:16)
[2020-08-08] MEDS: FERROUS SULF 325 MG (IRON) TAB PO SCH (09:16)
--- NOTE | 2020-08-08 14:30 | NUR ---
parents into nursery for feeding infant.
--- NOTE | 2020-08-08 19:16 | NUR ---
report given to CRISTIANE Whitaker.
[2020-08-09 04:25] VITALS: BP 129/69
[2020-08-09] MEDS: IBUPROFEN 600 MG (MOTRIN) TAB PO SCH ×4 (04:26→20:03)
[2020-08-09 05:32] LABS: BASOPHILS # (AUTO) 0.1 10^3/uL (0.0-0.1); BASOPHILS % (AUTO) 1 % (0-10); EOSINOPHILS # (AUTO) 0.3 10^3/uL (0.0-0.3); EOSINOPHILS % (AUTO) 2 % (0-10); HEMATOCRIT 31 % (35-52); LYMPHOCYTES # (AUTO) 3.3 10^3/uL (1.0-4.0); LYMPHOCYTES % (AUTO) 30 % (12-44); MEAN CORPUSCULAR HEMOGLOBIN 27 pg (25-34); MEAN CORPUSCULAR HGB CONC 33 g/dL (32-36); MEAN CORPUSCULAR VOLUME 84 fL (80-99); MEAN PLATELET VOLUME 11.2 fL (9.0-12.2); MONOCYTES # (AUTO) 0.7 10^3/uL (0.0-1.0); MONOCYTES % (AUTO) 6 % (0-12); NEUTROPHILS # (AUTO) 6.7 10^3/uL (1.8-7.8); NEUTROPHILS % (AUTO) 61 % (42-75); PLATELET COUNT 240 10^3/uL (130-400); WHITE BLOOD COUNT 11.1 10^3/uL (4.3-11.0)
--- NOTE | 2020-08-09 08:31 | Postpartum Progress Note ---
Note Note Day # 1 s/p /previpitous Subjective: Patient is without complaints. Ambulating, voiding. Tolerating a regular diet without nausea or vomiting. Normal lochia. Pain is well controlled with oral pain medications. breast feeding. Objective: Laboratory Tests Test 08/09/20 04:45 Range/Units White Blood Count 11.1 H 4.3-11.0 10^3/uL Red Blood Count 3.66 L 3.80-5.11 10^6/uL Hemoglobin 10.0 L 11.5-16.0 g/dL Hematocrit 31 L 35-52 % Mean Corpuscular Volume 84 80-99 fL Mean Corpuscular Hemoglobin 27 25-34 pg Mean Corpuscular Hemoglobin Concent 33 32-36 g/dL Red Cell Distribution Width 14.4 10.0-14.5 % Platelet Count 240 130-400 10^3/uL Mean Platelet Volume 11.2 9.0-12.2 fL Immature Granulocyte % (Auto) 1 % Neutrophils (%) (Auto) 61 42-75 % Lymphocytes (%) (Auto) 30 12-44 % Monocytes (%) (Auto) 6 0-12 % Eosinophils (%) (Auto) 2 0-10 % Basophils (%) (Auto) 1 0-10 % Neutrophils # (Auto) 6.7 1.8-7.8 10^3/uL Lymphocytes # (Auto) 3.3 1.0-4.0 10^3/uL Monocytes # (Auto) 0.7 0.0-1.0 10^3/uL Eosinophils # (Auto) 0.3 0.0-0.3 10^3/uL Basophils # (Auto) 0.1 0.0-0.1 10^3/uL Immature Granulocyte # (Auto) 0.1 0.0-0.1 10^3/uL 08/08/20 08/09/20 22:24 04:25 Temp 37.0 36.6 Pulse 93 92 Resp 18 18 B/P (MAP) 112/56 (74) 129/69 (89) Pulse Ox 97 96 O2 Delivery Room Air Room Air Physical Exam: General - Alert and oriented, no apparent distress Abdomen - Soft, appropriately tender to palpation, non-distended, fundus firm at umbilicus Extremities - no edema, negative Magdalena's bilaterally Assessment: 1 post- day # 1, status post [spontaneous vaginal delivery. Recovering well, hemodynamically stable Plan: Routine care. Encourage breast feeding. Encourage ambulation. Ferrous sulfate supplementation. Plan for discharge or to parent room today Vitals - Labs Vital Signs - I&O Vital Signs Date Time Temp Pulse Resp B/P (MAP) Pulse Ox O2 Delivery O2 Flow Rate FiO2 08/09/20 04:25 36.6 92 18 129/69 (89) 96 Room Air 08/08/20 22:24 37.0 93 18 112/56 (74) 97 Room Air 08/08/20 15:45 36.5 88 18 121/75 (90) 97 Room Air 08/08/20 09:15 36.6 102 18 92/50 (64) 95 Room Air Labs Laboratory Tests 08/09/20 04:45: White Blood Count 11.1H, Red Blood Count 3.66L, Hemoglobin 10.0L, Hematocrit 31L , Mean Corpuscular Volume 84, Mean Corpuscular Hemoglobin 27, Mean Corpuscular Hemoglobin Concent 33, Red Cell Distribution Width 14.4, Platelet Count 240, Mean Platelet Volume 11.2, Immature Granulocyte % (Auto) 1, Neutrophils (%) (Auto) 61, Lymphocytes (%) (Auto) 30, Monocytes (%) (Auto) 6, Eosinophils (%) (Auto) 2, Basophils (%) (Auto) 1, Neutrophils # (Auto) 6.7, Lymphocytes # (Auto) 3.3, Monocytes # (Auto) 0.7, Eosinophils # (Auto) 0.3, Basophils # (Auto) 0.1, Immature Granulocyte # (Auto) 0.1 CHAENL SIMON DO Aug 09, 2020 08:31
[2020-08-09 09:00] VITALS: BP 120/71
--- NOTE | 2020-08-09 09:00 | NUR ---
A.M. ASSESSMENT COMPLETED. VSS.
[2020-08-09] MEDS: PRENATAL VITAMIN 1 EA TAB PO SCH (09:13)
[2020-08-09] MEDS: FERROUS SULF 325 MG (IRON) TAB PO SCH (09:13)
[2020-08-09] MEDS: DOCUSATE SODIUM 100 MG (COLACE) CAP PO SCH ×2 (09:13→20:56)
[2020-08-09 13:00] VITALS: BP 118/67
[2020-08-09] MEDS: ACETAMINOPHEN 500 MG TAB (TYLENOL) PO SCH ×2 (14:00→23:42)
--- NOTE | 2020-08-09 14:00 | NUR ---
CARING FOR INFANT IN ROOM. GOOD INTERACTION NOTED. HAS BEEN SPITTING UP MUCOUSY COLOSTRUM.
--- NOTE | 2020-08-09 15:00 | NUR ---
INFANT IS DOING MUCH BETTER AT THIS TIME.
[2020-08-09 16:30] VITALS: BP 120/70
--- NOTE | 2020-08-09 16:33 | NUR ---
RHOGAM 1 VIAL IM IN LEFT VG SITE. SITE CLEAR.
[2020-08-09 23:00] VITALS: BP 118/73
[2020-08-10] MEDS: IBUPROFEN 600 MG (MOTRIN) TAB PO SCH ×2 (00:48→05:56)
[2020-08-10 05:56] VITALS: BP 125/68
[2020-08-10] MEDS: ACETAMINOPHEN 500 MG TAB (TYLENOL) PO SCH (05:56)
--- NOTE | 2020-08-10 07:31 | Postpartum Progress Note ---
Note Note Day # 1 s/p Baby not discharged yesterday so mom stayed. Ready to be dc home or to parent room today. Subjective: Patient is without complaints. Ambulating, voiding. Tolerating a regular diet without nausea or vomiting. Normal lochia. Pain is well controlled with oral pain medications. breast feeding. [] Objective: 08/09/20 08/10/20 23:00 05:56 Temp 36.8 36.6 Pulse 92 81 Resp 18 18 B/P (MAP) 118/73 (88) 125/68 (87) Pulse Ox 97 97 O2 Delivery Room Air Room Air Laboratory Tests Test 08/09/20 11:05 08/10/20 05:59 Range/Units Glucometer 86 63 L 70-110 MG/DL Physical Exam: General - Alert and oriented, no apparent distress Abdomen - Soft, appropriately tender to palpation, non-distended, fundus firm at umbilicus Extremities - no edema, negative Magdalena's bilaterally Assessment: 1 post- day # 2, status post vaginal delivery. Recovering well, hemodynamically stable 2. GDM A2 - pp hgb 63 Plan: Routine care. Encourage breast feeding. Encourage ambulation. Ferrous sulfate supplementation. Plan for discharge or parent room today Vitals - Labs Vital Signs - I&O Vital Signs Date Time Temp Pulse Resp B/P (MAP) Pulse Ox O2 Delivery O2 Flow Rate FiO2 08/10/20 05:56 36.6 81 18 125/68 (87) 97 Room Air 08/09/20 23:00 36.8 92 18 118/73 (88) 97 Room Air 08/09/20 16:30 36.6 93 18 120/70 (87) 96 Room Air 08/09/20 13:00 36.5 84 18 118/67 (84) 97 Room Air 08/09/20 09:00 36.7 92 18 120/71 (87) 97 Room Air Labs Laboratory Tests 08/09/20 11:05: Glucometer 86 08/10/20 05:59: Glucometer 63L CHANEL SIMON DO Aug 10, 2020 07:31
[2020-08-10 08:40] VITALS: BP 123/62
[2020-08-10] MEDS: DOCUSATE SODIUM 100 MG (COLACE) CAP PO SCH (10:19)
[2020-08-10] MEDS: PRENATAL VITAMIN 1 EA TAB PO SCH (10:19)
[2020-08-10] MEDS: FERROUS SULF 325 MG (IRON) TAB PO SCH (10:19)
== END 2020-08-10 14:00 | disposition home or self-care (01) | DRG 807 ==
LOC: WSo 01:50 → LDRP 01:51 → WSo 02:09 → LDRP 02:10
PROVIDERS: ADMIT Obstetrics & Gynecology; ATTEND Obstetrics & Gynecology
PROC: 10E0XZZ Delivery of Products of Conception, External Approach (ICD-10-PCS; principal; 2020-08-08)
DX: O24.429 Gestational diabetes mellitus in childbirth, unspecified control (principal); Z37.0 Single live birth; Z3A.37 37 weeks gestation of pregnancy; O70.0 First degree perineal laceration during delivery
CPT/HCPCS: 36415; 82947; 82962; 83033; 85025; 86703; 86762; 86780; 86850; 86900; 86901; 87340; 87635; 99212

== ENCOUNTER → 2020-11-20 | Outpatient (CLI) | payer MEDICAID ==
[~2020-11-20] MED LIST changes: +ACET-93 PO; +FERR325T18 PO
--- NOTE | 2020-11-20 17:04 | Diagnostic Imaging Report ---
INDICATION: Wheezing and shortness of breath. EXAMINATION: PA and lateral chest obtained at 11:48 AM. FINDINGS: The heart and mediastinal silhouette are normal in appearance. The lungs are clear. There is no pneumothorax or pleural fluid. IMPRESSION: Negative chest. Dictated by: Dictated on workstation # [id number]
== END ==
LOC: RAD FS 11:41
PROVIDERS: ATTEND Family Medicine
DX: R06.02 Shortness of breath (principal); R06.2 Wheezing
CPT/HCPCS: 71046

== ENCOUNTER → 2021-01-08 | Outpatient (CLI) | payer MEDICAID | LOC: LABNPT 14:50 | PROVIDERS: ATTEND Family Medicine | DX: J02.9 Acute pharyngitis, unspecified (principal) | CPT/HCPCS: 87070 ==

== ENCOUNTER → 2022-04-10 | Outpatient (CLI) | payer MEDICAID | LOC: LAB FS 14:08 | PROVIDERS: ATTEND Family Medicine | DX: Z33.1 Pregnant state, incidental (principal) | CPT/HCPCS: 36415; 84702 ==

== ENCOUNTER → 2022-06-20 | Outpatient (CLI) | payer MEDICAID ==
[2022-06-20 14:49] LABS: HEMATOCRIT 37 % (35-52); HEMOGLOBIN 12.2 g/dL (11.5-16.0); MEAN CORPUSCULAR HEMOGLOBIN 26 pg (25-34); MEAN CORPUSCULAR HGB CONC 33 g/dL (32-36); MEAN CORPUSCULAR VOLUME 79 fL (80-99); PLATELET COUNT 316 10^3/uL (130-400); WHITE BLOOD COUNT 11.3 10^3/uL (4.3-11.0)
== END ==
LOC: LAB FS 14:10
PROVIDERS: ATTEND Family Medicine
DX: O26.21 Pregnancy care for patient with recurrent pregnancy loss, first trimester (principal); Z3A.00 Weeks of gestation of pregnancy not specified
CPT/HCPCS: 36415; 80055; 85027; 87088; 87389

== ENCOUNTER → 2022-07-22 | Outpatient (CLI) | payer MEDICAID | LOC: LABNPT 14:56 | PROVIDERS: ATTEND Family Medicine | DX: Z34.91 Encounter for supervision of normal pregnancy, unspecified, first trimester (principal); Z3A.13 13 weeks gestation of pregnancy | CPT/HCPCS: 87491; 87591 ==

== ENCOUNTER 2023-01-05 13:20 | Inpatient (IN) | payer MEDICAID ==
[2023-01-05] VITALS (9 sets, daily range): BP systolic 116–152; BP diastolic 58–95
[~2023-01-05] VITALS: Ht 157.5 cm; Wt 115.1 kg
[2023-01-05] MEDS ORDERED: LACTATED RINGERS 1,000 ML IV ONE (14:00)
[2023-01-05] MEDS ORDERED: OXYTOCIN PRE-MIX DRIP 500 ML IV ONE (14:07)
[2023-01-05] MEDS ORDERED: LIDOCAINE 1% INJ 10 ML VIAL ONE ×2 (14:08→16:11)
[2023-01-05] MEDS ORDERED: D5 LR IV SOLUTION 1,000 ML IV SCH (14:15)
[2023-01-05 14:20] LABS: BASOPHILS % (AUTO) 0 % (0-10); EOSINOPHILS # (AUTO) 0.1 10^3/uL (0.0-0.3); EOSINOPHILS % (AUTO) 1 % (0-10); HEMATOCRIT 33 % (35-52); HEMOGLOBIN 10.6 g/dL (11.5-16.0); LYMPHOCYTES # (AUTO) 2.1 10^3/uL (1.0-4.0); LYMPHOCYTES % (AUTO) 17 % (12-44); MEAN CORPUSCULAR HEMOGLOBIN 26 pg (25-34); MEAN CORPUSCULAR HGB CONC 33 g/dL (32-36); MEAN CORPUSCULAR VOLUME 79 fL (80-99); MEAN PLATELET VOLUME 10.2 fL (9.0-12.2); MONOCYTES # (AUTO) 0.7 10^3/uL (0.0-1.0); MONOCYTES % (AUTO) 6 % (0-12); NEUTROPHILS # (AUTO) 9.9 10^3/uL (1.8-7.8); NEUTROPHILS % (AUTO) 76 % (42-75); PLATELET COUNT 328 10^3/uL (130-400); WHITE BLOOD COUNT 12.9 10^3/uL (4.3-11.0)
[2023-01-05] MEDS ORDERED: PNV11TAB5 PO (14:49)
[2023-01-05] MEDS ORDERED: MONT-47 PO (14:51)
--- NOTE | 2023-01-05 15:11 | History & Physical-OB ---
OB - Chief Complaint & HPI Date/Time Date of Admission: Date of Admission: Jan 05, 2023 at 13:50 Date seen by a Provider: Jan 05, 2023 Time Seen by a Provider: 15:00 Chief Complaint/History OB-Reason for Admission/Chief: Onset of Labor Hx : 7 Hx Para: 3 Expected Date of Delivery: January 22, 2023 Gestational Age in Weeks: 37 Gestational Age in Days: 4 Admission Nurse Assessment Rev: Yes History of Labs A neg Antibody neg RI RPR NR HBsAg NR HIV NR GC neg GBS neg Allergies and Home Medications Allergies Coded Allergies: No Known Drug Allergies (Unverified , 08/08/20) Patient Home Medication List Home Medication List Reviewed: Yes Montelukast Sodium (Singulair) 10 Mg Tablet, 10 MG PO HS, (Reported) Entered as Reported by: SHELLEY ADLER on 01/05/23 145 Last Action: New Order Utj408/FA/Omega3/Dha/Fish Oil ( Gummies) 400 Mcg-32.5 Mg (25 Mg-7.5 Mg) Tab.chew, 2 EACH PO DAILY, (Reported) Entered as Reported by: SHELLEY ADLER on 01/05/23 144 Last Action: New Order Discontinued Medications Acetaminophen (Acetaminophen) 500 Mg Tablet, 1,000 MG PO Q8HR Discontinued Reason: No Longer Taking Prescribed by: CHANEL SIMON on 08/08/20404 Last Action: Discontinued Ferrous Sulfate (Ferrous Sulfate) 325 Mg Tablet, 325 MG PO DAILY Discontinued Reason: No Longer Taking Prescribed by: CHANEL SIMON on 08/08/20404 Last Action: Discontinued Ibuprofen (Ibu) 600 Mg Tablet, 600 MG PO Q6HR Discontinued Reason: No Longer Taking Prescribed by: CHANEL SIMON on 08/08/20404 Last Action: Discontinued OB - History Obstetrical History Hx Termination: No Hx Multiple Gestation: No Hx Stillbirth: No Hx Complication: No Hx Induced Hypertens: No Hx Maternal Gestational Diabet: Yes Delivery History Hx Dystocia: No Hx Large For Gestational Age I: Yes Hx Small for Gestational Age I: No Hx Section: No Hx Vaginal Delivery Post C-Sec: No Hx Blood Disorders: No Adverse Rxn to Tranfusion: No Patient Past Medical History NC Social History/Family History 2nd Hand Smoke Exposure: No Immunizations Influenza Vaccine Up-to-Date: No; Not Current Hepatitis A: No Hepatitis B: No Tetanus Booster (TDap): Less than 5yrs OB - Admission Exam Physical Exam HEENT: NCAT Heart: Rhythm Normal Lungs: Clear Abdomen: Gravid Extremities: Normal Reflexes: Normal Cervical Dilatation: 6cm Effacement: 75% Station: -1 Membranes: Intact Heart Rate: 130's Accelerations: Accelerations Present Decelerations: No Decelerations Short Term Variability: Present [employer] Variability: Average (6-25) Contractions on Admission: < 5 Minutes Apart Intensity: Mild Labs Laboratory Tests Test 01/05/23 14:00 Range/Units White Blood Count 12.9 H 4.3-11.0 10^3/uL Red Blood Count 4.14 3.80-5.11 10^6/uL Hemoglobin 10.6 L 11.5-16.0 g/dL Hematocrit 33 L 35-52 % Mean Corpuscular Volume 79 L 80-99 fL Mean Corpuscular Hemoglobin 26 25-34 pg Mean Corpuscular Hemoglobin Concent 33 32-36 g/dL Red Cell Distribution Width 14.3 10.0-14.5 % Platelet Count 328 130-400 10^3/uL Mean Platelet Volume 10.2 9.0-12.2 fL Immature Granulocyte % (Auto) 0 % Neutrophils (%) (Auto) 76 H 42-75 % Lymphocytes (%) (Auto) 17 12-44 % Monocytes (%) (Auto) 6 0-12 % Eosinophils (%) (Auto) 1 0-10 % Basophils (%) (Auto) 0 0-10 % Neutrophils # (Auto) 9.9 H 1.8-7.8 10^3/uL Lymphocytes # (Auto) 2.1 1.0-4.0 10^3/uL Monocytes # (Auto) 0.7 0.0-1.0 10^3/uL Eosinophils # (Auto) 0.1 0.0-0.3 10^3/uL Basophils # (Auto) 0.0 0.0-0.1 10^3/uL Immature Granulocyte # (Auto) 0.1 0.0-0.1 10^3/uL OB - Assessment/Plan/Diagnosis Assessment Assessment: active labor Admission Dx 27 yo @ 37 weeks Active labor [id number] GBS neg Admission Status: Inpatient Order (span 2 midnights) Reason for Inpatient Admission: Active labor at 37 weeks Plan Plan: Expectant Management SUMAYA RAMOS DO Jan 05, 2023 15:11
[2023-01-05] MEDS: OXYTOCIN PRE-MIX DRIP 500 ML IV SCH ×2 (16:22→17:05)
--- NOTE | 2023-01-05 16:36 | OB Labor & Delivery Record ---
L&D History Date of Service Date of Service: Jan 05, 2023 History Expected Date of Delivery: January 22, 2023 Gestational Age in Weeks: 37 Hx : 7 Hx Para: 3 Complications Events: Routine care Operative Indications (Cesarea: N/A-Vaginal Delivery Intrapartal Events: None L&D Stage1 Stage One Onset of Labor - Date: Jan 05, 2023 Monitors and Tracing Monitor Mode: External Heart Rate: 135 Monitor Accelerations: Uniform Monitor Decelerations: None Halfway Variability: Average (6-10) Short Term Variability: Present Presentation: Vertex Vital Signs VS - Last 72 Hours, by Label 01/05/23 13:52 Pulse 108 Resp 20 B/P (MAP) 120/76 (91) Rupture of Membranes Spontaneous Ruture of Membrane: No Amniotic Membrane Rupture Time: 15:30 Amniotic Membrane Fluid Desc.: Clear Vaginal Bleeding Description: Normal Show Progress/Notes Patient admitted at 6 cm dialated. AROM performed and progressed rapidly to complete and + 3 station with no other augmentation and no analgesic medication. L&D Stage2 Stage Two Stage II Date: Jan 05, 2023 Monitors and Tracing Monitor Mode: External Heart Rate: 135 Monitor Accelerations: Uniform Monitor Decelerations: None Halfway Variability: Average (6-10) Short Term Variability: Present Position: Right Occiput Anterior Presentation: Vertex Cord Descript/Complications Cord Vessel Description: 3 Vessels Delivery Type Infant Delivery Method: Spontaneous Vaginal Anterior Shoulder: Right Episiotomy/Perineal Laceration Laceraction(s)/Extensions: Yes Episiotomy Description: Perineal Extension/lac, 1st degree Degree (describe repair) repaired using 3-0 rapide vicryl suture Condition of Delivery 1 minute Comment: 8 5 minute Comment: 9 Notes Live male infant weight 7lbs 14 oz Condition of Infant Condition of : Living Exam: No Observed Abnormalities Resuscitation Resuscitation: N/A - Spontaneous Resp L&D Stage3 Stage Three Stage III Date: Jan 05, 2023 Pictocin Pitocin Administration Comment: 30 mu wide open after delivery of placenta Placenta Delivery Placenta Delivery: Spontaneous Delivery Summary Summary Estimated blood loss (mL): 300 Attending at delivery: Sumaya Ramos DO Condition of Delivery Examined: Cervix Examined, Uterus Explored Post Hemorrhage: No Condition of Mother stable Condition of (s) stable SUMAYA RAMOS DO Jan 05, 2023 16:36
--- NOTE | 2023-01-05 16:37 | Discharge Inst-Women's Service ---
Discharge Inst-Women's Serv Depart Medication/Instructions New, Converted or Re-Newed RX: Transmitted to Pharmacy Final Diagnosis PPD 1 NVD Problems Reviewed?: Yes Consults/Follow Up Additional Follow Up: Yes Orders/Referrals Dr. Ramos or Momo in 6 weeks Activity Activity: Activity as Tolerated Driving Instructions: No Driving for 1 Week NO SMOKING: NO SMOKING Nothing Inside Vagina: No Douching, No [place], No Tampons Diet Discharge Diet: No Restrictions Symptoms to Report to : Bleeding Excessive, Pain Increased, Fever Over 101 Degrees F, Vaginal Bleeding Increase, Questions/Concerns For Any Problems or Questions: Contact Your Physician SUMAYA RAMOS DO Jan 05, 2023 16:37
[2023-01-05] MEDS ORDERED: BENZ78AE5 TP (16:38)
[2023-01-05] MEDS ORDERED: FERR325T24 PO (16:38)
[2023-01-05] MEDS ORDERED: ACET-93 PO (16:38)
[2023-01-05] MEDS ORDERED: DIBU30OI TOP (16:38)
[2023-01-05] MEDS ORDERED: IBUP-844 PO (16:38)
[2023-01-05] MEDS ORDERED: DOCU100C37 PO (16:38)
[2023-01-05] MEDS ORDERED: WITCH HAZEL(TUCKS) 40 EA JAR TOP PRN (16:45)
[2023-01-05] MEDS ORDERED: TETANUS,DIPTH,PERTUSS P/F (BOOSTRIX) 0.5 ML VIAL IM ONE (16:45)
[2023-01-05] MEDS ORDERED: DIBUCAINE 1% OINTMENT 28 GM TUBE TOP PRN (16:45)
[2023-01-05] MEDS ORDERED: BENZOCAINE/MENTHOL (DERMOPLAST) 56 ML CAN TP PRN (16:45)
[2023-01-05] MEDS ORDERED: MEASLES,MUMPS,RUBELLA 1 EA INJ SQ ONE (16:45)
[2023-01-05] MEDS ORDERED: NALOXONE 0.4 MG/ML 1 ML (NARCAN) VIAL IV PRN (16:45)
[2023-01-05] MEDS ORDERED: ACETAMINOPHEN 500 MG TAB (TYLENOL) PO PRN (16:45)
[2023-01-05] MEDS: IBUPROFEN 600 MG (MOTRIN) TAB PO SCH (17:06)
[2023-01-05] MEDS: CATHETER FLUSH 10 ML SYR IV SCH (21:10)
[2023-01-05] MEDS: DOCUSATE SODIUM 100 MG (COLACE) CAP PO SCH (21:10)
[2023-01-05] MEDS ORDERED: CATHETER FLUSH 10 ML SYR IV SCH (22:00)
[2023-01-06 01:07] VITALS: BP 146/74
[2023-01-06] MEDS: IBUPROFEN 600 MG (MOTRIN) TAB PO SCH ×3 (01:09→14:49)
[2023-01-06 05:36] VITALS: BP 123/75
[2023-01-06] MEDS: CATHETER FLUSH 10 ML SYR IV SCH ×2 (05:40→14:49)
[2023-01-06 05:48] LABS: BASOPHILS % (AUTO) 0 % (0-10); EOSINOPHILS % (AUTO) 0 % (0-10); HEMATOCRIT 30 % (35-52); HEMOGLOBIN 9.6 g/dL (11.5-16.0); LYMPHOCYTES # (AUTO) 2.1 10^3/uL (1.0-4.0); LYMPHOCYTES % (AUTO) 15 % (12-44); MEAN CORPUSCULAR HEMOGLOBIN 25 pg (25-34); MEAN CORPUSCULAR HGB CONC 32 g/dL (32-36); MEAN CORPUSCULAR VOLUME 79 fL (80-99); MEAN PLATELET VOLUME 10.4 fL (9.0-12.2); MONOCYTES # (AUTO) 0.8 10^3/uL (0.0-1.0); MONOCYTES % (AUTO) 5 % (0-12); NEUTROPHILS # (AUTO) 11.2 10^3/uL (1.8-7.8); NEUTROPHILS % (AUTO) 79 % (42-75); PLATELET COUNT 297 10^3/uL (130-400); WHITE BLOOD COUNT 14.2 10^3/uL (4.3-11.0)
[2023-01-06] MEDS ORDERED: PRENATAL VITAMIN 1 EA TAB PO SCH (07:00)
[2023-01-06 08:00] VITALS: BP 118/76
[2023-01-06] MEDS: DOCUSATE SODIUM 100 MG (COLACE) CAP PO SCH (08:24)
[2023-01-06] MEDS ORDERED: RHO(D) IMMUNE GLOBULIN 300 MCG/2 ML SYRINGE IM/IV ONE (08:30)
[2023-01-06] MEDS ORDERED: FERROUS SULF 325 MG (IRON) TAB PO SCH (09:00)
--- NOTE | 2023-01-06 09:43 | Postpartum Progress Note ---
Note Note Day # 1 Subjective: Patient is without complaints. Ambulating, voiding. Tolerating a regular diet without nausea or vomiting. Normal lochia. Pain is well controlled with oral pain medications. [] feeding. [] Objective: Physical Exam: General - Alert and oriented, no apparent distress Abdomen - Soft, appropriately tender to palpation, non-distended, fundus firm at umbilicus Extremities - no edema, negative Magadlena's bilaterally Assessment: PPD 1 NVD Acute blood loss anemia Plan: Routine care. Encourage breast feeding. Encourage ambulation. Ferrous sulfate supplementation. Plan for discharge today Vitals - Labs Vital Signs - I&O Vital Signs Date Time Temp Pulse Resp B/P (MAP) Pulse Ox O2 Delivery O2 Flow Rate FiO2 01/06/23 08:00 36.5 78 18 118/76 (90) 94 Room Air 01/06/23 05:36 36.4 89 18 123/75 (91) 94 Room Air 01/06/23 01:07 36.7 79 18 146/74 (98) 97 Room Air 01/05/23 21:09 36.9 90 18 117/58 (77) 96 Room Air 01/05/23 17:36 90 18 125/95 (105) Room Air 01/05/23 17:21 80 18 139/91 (107) Room Air 01/05/23 17:06 37.5 84 18 152/89 (110) Room Air 01/05/23 16:58 36.6 93 18 148/84 (105) Room Air 01/05/23 16:28 36.7 92 18 128/70 (89) Room Air 01/05/23 16:12 36.6 Room Air 01/05/23 15:58 37.2 93 20 116/62 (80) Room Air 01/05/23 15:27 105 20 141/82 (101) Room Air 01/05/23 15:00 37.2 Room Air 01/05/23 13:52 108 20 120/76 (91) I & O 01/06/23 07:00 Intake Total 5830 ml Balance 5830 ml Labs Laboratory Tests 01/05/23 14:00: White Blood Count 12.9H, Red Blood Count 4.14, Hemoglobin 10.6L, Hematocrit 33L, Mean Corpuscular Volume 79L, Mean Corpuscular Hemoglobin 26, Mean Corpuscular Hemoglobin Concent 33, Red Cell Distribution Width 14.3, Platelet Count 328, Mean Platelet Volume 10.2, Immature Granulocyte % (Auto) 0, Neutrophils (%) (Auto) 76H, Lymphocytes (%) (Auto) 17, Monocytes (%) (Auto) 6, Eosinophils (%) (Auto) 1, Basophils (%) (Auto) 0, Neutrophils # (Auto) 9.9H, Lymphocytes # (Auto) 2.1, Monocytes # (Auto) 0.7, Eosinophils # (Auto) 0.1, Basophils # (Auto) 0.0, Immature Granulocyte # (Auto) 0.1 01/06/23 05:21: White Blood Count 14.2H, Red Blood Count 3.78L, Hemoglobin 9.6L, Hematocrit 30L, Mean Corpuscular Volume 79L, Mean Corpuscular Hemoglobin 25, Mean Corpuscular Hemoglobin Concent 32, Red Cell Distribution Width 14.0, Platelet Count 297, Mean Platelet Volume 10.4, Immature Granulocyte % (Auto) 1, Neutrophils (%) (Auto) 79H, Lymphocytes (%) (Auto) 15, Monocytes (%) (Auto) 5, Eosinophils (%) (Auto) 0, Basophils (%) (Auto) 0, Neutrophils # (Auto) 11.2H, Lymphocytes # (Auto) 2.1, Monocytes # (Auto) 0.8, Eosinophils # (Auto) 0.0, Basophils # (Auto) 0.0, Immature Granulocyte # (Auto) 0.1 SUMAYA RAMOS DO Jan 06, 2023 09:43
[2023-01-06 12:00] VITALS: BP 122/67
[2023-01-06 15:33] VITALS: BP 123/67
== END 2023-01-06 18:00 | disposition home or self-care (01) | DRG 806 ==
LOC: LDRP 13:20 → WSo 13:20 → LDRP 13:50
PROVIDERS: ADMIT Obstetrics & Gynecology; ATTEND Obstetrics & Gynecology
PROC: 10E0XZZ Delivery of Products of Conception, External Approach (ICD-10-PCS; principal; 2023-01-05)
PROC: 0HQ9XZZ Repair Perineum Skin, External Approach (ICD-10-PCS; 2023-01-05)
DX: O24.420 Gestational diabetes mellitus in childbirth, diet controlled (principal); D62 Acute posthemorrhagic anemia; Z37.0 Single live birth; O70.0 First degree perineal laceration during delivery; O90.81 Anemia of the puerperium; Z3A.37 37 weeks gestation of pregnancy
CPT/HCPCS: 36415; 83033; 85025; 86780; 86850; 86900; 86901